=== PATIENT | female | born 1985 | race Caucasian/White ===

== ENCOUNTER → 2024-10-26 12:34 | Outpatient (REF) | payer BC, SELFPAY | LOC: DHSLP 12:34 | PROVIDERS: ATTENDING PHYSICIAN Internal Medicine Critical Care Medicine; FAMILY PHYSICIAN Internal Medicine | DX: G47.19 Other hypersomnia (principal); G47.8 Other sleep disorders; R06.83 Snoring | CPT/HCPCS: 95800 ==